=== PATIENT | male | born 1990 | race African-American/Black ===

== ENCOUNTER 2017-10-19 08:43 | Emergency (ER) | payer SELFPAY ==
[~2017-10-19] VITALS: Ht 172.7 cm; Wt 90.0 kg
[2017-10-19 08:45] VITALS: BP 149/62
== END 2017-10-19 10:41 | disposition home or self-care (01) ==
LOC: ER 08:43
DX: S60.455A Superficial foreign body of left ring finger, initial encounter (principal); W45.8XXA Other foreign body or object entering through skin, initial encounter; Y93.89 Activity, other specified; Y92.018 Other place in single-family (private) house as the place of occurrence of the external cause
CPT/HCPCS: 99283